=== PATIENT | female | born 1955 | race Caucasian/White ===

== ENCOUNTER → 2018-03-20 | Outpatient (CLI) | payer OTHER | END | disposition home or self-care (01) | LOC: CARD 08:35 | PROVIDERS: ATTEND Internal Medicine Cardiovascular Disease | DX: R07.9 Chest pain, unspecified (principal) | CPT/HCPCS: 93017 ==

== ENCOUNTER → 2019-09-13 | Outpatient (CLI) | payer MEDICARE ==
[~2019-09-13] MED LIST: CHOL2000 PO; CHOL5000 PO; CLON0.5T11 PO; ESTR0.6246 PO; FLUO40CA9 PO; MULT1TAB60 PO; VALA1000 PO
== END | disposition home or self-care (01) ==
LOC: STAR 13:17
PROVIDERS: ATTEND Orthopaedic Surgery
DX: Z01.818 Encounter for other preprocedural examination (principal); S76.001A Unspecified injury of muscle, fascia and tendon of right hip, initial encounter; X58.XXXA Exposure to other specified factors, initial encounter; Y93.89 Activity, other specified; Y92.89 Other specified places as the place of occurrence of the external cause; Y99.8 Other external cause status; Z79.899 Other long term (current) drug therapy; F12.10 Cannabis abuse, uncomplicated; F17.200 Nicotine dependence, unspecified, uncomplicated; Z88.0 Allergy status to penicillin; Z91.018 Allergy to other foods
CPT/HCPCS: 93005

== ENCOUNTER 2019-09-24 11:03 | Observation (INO) | payer MEDICARE ==
[~2019-09-24] VITALS: Ht 170.2 cm; Wt 69.2 kg
[2019-09-24] MEDS ORDERED: LACTATED RINGERS 1,000 ML IV SCH (11:25)
[2019-09-24] MEDS ORDERED: ACETAMINOPHEN 500 MG TABLET PO ONE (11:30)
[2019-09-24] MEDS ORDERED: GABAPENTIN 300 MG CAPSULE PO ONE (11:30)
[2019-09-24] MEDS ORDERED: LIDOCAINE-MPF 1%, 2ML INFIL ONE (11:30)
[2019-09-24 11:33] VITALS: BP 169/89
[2019-09-24] MEDS ORDERED: CLINDAMYCIN 150 MG/ML, 6ML ONE (12:18)
[2019-09-24] MEDS ORDERED: HYDROmorphone 2 MG/ML, 1ML IVPush PRN (12:30)
[2019-09-24] MEDS ORDERED: MEPERIDINE/PF 25MG/ML,1ML IVPush PRN (12:30)
[2019-09-24] MEDS ORDERED: HALOPERIDOL 5 MG/ML IV PRN (12:30)
[2019-09-24] MEDS ORDERED: PROMETHAZINE 25 MG/ML, 1ML IV PRN (12:30)
[2019-09-24] MEDS ORDERED: LABETALOL 5MG/ML, 20ML IV PRN (12:30)
[2019-09-24] MEDS ORDERED: OXYcodone 5 MG/5 ML ORAL.SOL UDC PO PRN (12:30)
[2019-09-24] MEDS ORDERED: hydrALAzine 20 MG/ML, 1ML IV PRN (12:30)
[2019-09-24] MEDS ORDERED: FENTANYL PF 100 MCG/2ML ONE ×3 (12:40→14:50)
[2019-09-24] MEDS ORDERED: MORPHINE SULFATE 4 MG/ML, 1ML ONE (12:44)
[2019-09-24] MEDS ORDERED: EPINEPHRINE 1 MG/ML, 1ML ONE (12:44)
[2019-09-24] MEDS ORDERED: ROPIvacaine/PF 0.2%, 20 ML ONE (12:44)
[2019-09-24] MEDS ORDERED: KETOROLAC 60 MG/2 ML ONE (12:44)
[2019-09-24] MEDS ORDERED: SODIUM CHLORIDE 0.9% 50 ML ONE (12:44)
[2019-09-24] MEDS ORDERED: MIDAZOLAM 1 MG/ML, 2ML ONE (13:05)
[2019-09-24] MEDS ORDERED: ONDANSETRON 2MG/ML, 2ML ONE (14:01)
[2019-09-24] MEDS ORDERED: PROPOFOL 10 MG/ML, 20ML ONE (14:01)
[2019-09-24] MEDS ORDERED: NEOSTIGMINE 1 MG/ML, 10ML ONE (14:01)
[2019-09-24] MEDS ORDERED: DEXAMETHASONE 4 MG/ML, 1ML ONE (14:01)
[2019-09-24] MEDS ORDERED: SUCCINYLCHOLINE 20 MG/ML, 10ML ONE (14:01)
[2019-09-24] MEDS ORDERED: ROCURONIUM 10MG/ML,5ML ONE (14:01)
[2019-09-24] MEDS ORDERED: CEFAZOLIN 1,000 MG ONE (14:01)
[2019-09-24] MEDS ORDERED: GLYCOPYRROLATE 0.2MG/1ML, 5ML ONE (14:01)
[2019-09-24] MEDS ORDERED: OXYcodone/APAP 5/325MG TABLET PO PRN (14:30)
[2019-09-24] MEDS ORDERED: KETOROLAC 30 MG/1 ML IV SCH (14:30)
[2019-09-24] MEDS ORDERED: SCOPOLAMINE PATCH, 1.5MG PATCH.TD72 TD SCH (14:30)
[2019-09-24] MEDS ORDERED: DIPHENHYDRAMINE 50 MG/ML, 1ML IVPush PRN (14:30)
[2019-09-24] MEDS ORDERED: ONDANSETRON 4 MG TABLET PO PRN (14:30)
[2019-09-24] MEDS ORDERED: HYDROcodone/APAP 5/325 TABLET PO PRN (14:30)
[2019-09-24] MEDS ORDERED: MORPHINE SULFATE 4 MG/ML, 1ML IVPush PRN (14:30)
[2019-09-24] MEDS: FENTANYL PF 100 MCG/2ML IV PRN ×3 (14:52→15:14)
[2019-09-24] MEDS ORDERED: OXYcodone 5 MG/5 ML ORAL.SOL UDC ONE (14:58)
[2019-09-25] MEDS ORDERED: ASPIRIN 81 MG TABLET EC PO SCH (06:00)
[2019-09-25] MEDS ORDERED: ESTROGENS CONJUGATED 0.625 MG TABLET PO SCH (09:00)
[2019-09-25] MEDS ORDERED: TEMPLATE NON-FORMULARY MED. (Fluoxetine Hcl** (Prozac**) 40 MG) PO SCH (09:00)
[2019-09-25] MEDS ORDERED: TEMPLATE NON-FORMULARY MED. (Valacyclovir Hcl** (Valacyclovir**) 1,000 MG) PO SCH (09:00)
== END 2019-09-24 16:40 | disposition home or self-care (01) ==
LOC: OUT 11:03 → ORIP 14:29
PROVIDERS: ADMIT Orthopaedic Surgery; ATTEND Orthopaedic Surgery
DX: S76.312A Strain of muscle, fascia and tendon of the posterior muscle group at thigh level, left thigh, initial encounter (principal); M25.551 Pain in right hip; G89.29 Other chronic pain; F17.200 Nicotine dependence, unspecified, uncomplicated; Z68.23 Body mass index [BMI] 23.0-23.9, adult; Z79.82 Long term (current) use of aspirin; Z88.0 Allergy status to penicillin; Z91.018 Allergy to other foods; X50.0XXA Overexertion from strenuous movement or load, initial encounter; Y93.89 Activity, other specified; Y92.89 Other specified places as the place of occurrence of the external cause; Z90.710 Acquired absence of both cervix and uterus
CPT/HCPCS: 27299; G0378; J0171; J0330; J0690; J1100; J1885; J2250; J2405; J2704; J2795; J3010; J7120; S0077; J2710; J2270